=== PATIENT | female | born 1990 | race African-American/Black ===

== ENCOUNTER 2024-11-13 23:39 | Inpatient (IN) | payer SELFPAY ==
[~2024-11-13] VITALS: Ht 165.1 cm; Wt 59.9 kg
[2024-11-13 23:50] VITALS: O2SAT 99
[2024-11-14 00:44] LABS: BASOPHILS % 0.6 % (0.0-2.0); EOSINOPHILS % 0.4 % (0.0-5.0); HEMATOCRIT. 37.7 % (36.0-48.0); HEMOGLOBIN. 12.6 g/dL (12.0-16.0); LYMPHOCYTES % 28.0 % (20.0-50.0); MEAN PLATELET VOLUME 7.7 fl (7.4-10.4); MONOCYTES % 7.9 % (2.0-8.0); NEUTROPHILS % 63.1 % (40.0-76.0); PLATELET 234 x1000/uL (130-400); RED BLOOD CELL COUNT 4.05 mill/uL (4.2-5.4); RED CELL DISTRIBUTION WIDTH 18.3 % (11.6-14.6)
[2024-11-14] MEDS: LORAZEPAM 2MG/ML UD SYRINGE IV NR (01:01)
[2024-11-14] MEDS: SODIUM CHLORIDE 0.9% 1,000 ML IV ONE (01:02)
[2024-11-14] MEDS: ONDANSETRON HCL 4MG/2ML INJ IV ONE (01:02)
[2024-11-14 01:03] LABS: HCG SCREEN NEGATIVE
[2024-11-14 01:07] LABS: CREATININE 0.6 mg/dL (0.6-1.0); ETHANOL BLOOD 158 mg/dL (<10); UREA NITROGEN BLOOD 6 mg/dL (9-23)
[2024-11-14 01:09] LABS: ASPARTATE AMINOTRANSFERASE 283 IU/L (<34); BILIRUBIN DIRECT 0.4 mg/dL (<=3.0); BILIRUBIN TOTAL 0.8 mg/dL (0.1-1.0); PROTEIN TOTAL 8.0 g/dL (6.0-8.3)
[2024-11-14 04:00] VITALS: BP 115/70; PULSE 54; RESP 18; TEMP 36.4; O2SAT 97
[2024-11-14 05:43] VITALS: BP 125/83; PULSE 83; RESP 19; TEMP 36.5848
[2024-11-14] MEDS ORDERED: ONDANSETRON HCL 4MG/2ML INJ IV PRN ×2 (07:00→10:30)
[2024-11-14] MEDS ORDERED: NALOXONE HCL 0.4MG/ML VIAL IV PRN (07:30)
[2024-11-14] MEDS ORDERED: FOLIC ACID 1 MG, THIAMINE HCL 100 MG, MVI, ADULT NO.1 10 ML in DEXTROSE 5% WATER 1,000 ML IV ONE (07:30)
[2024-11-14 08:00] VITALS: BP 134/81; PULSE 86; RESP 18; TEMP 36.3; O2SAT 96
[2024-11-14] MEDS: DIAZEPAM 5 MG/ML 2ML SYR IV NR (08:18)
[2024-11-14] MEDS: PANTOPRAZOLE SODIUM 40 MG/VIAL IV SCH (08:18)
[2024-11-14] MEDS: FOLIC ACID 1 MG, THIAMINE HCL 100 MG, MVI, ADULT NO.1 10 ML in DEXTROSE 5% WATER 1,000 ML IV ONE (10:14)
[2024-11-14] MEDS: SODIUM CHLORIDE 0.9% 1,000 ML IV SCH (10:15)
[2024-11-14] MEDS ORDERED: ZOLPIDEM TARTRATE 5MG TABLET PO PRN (10:30)
[2024-11-14] MEDS ORDERED: MAGNESIUM/ALUMINUM HYDROXIDE/SIMETHICONE 30ML UDC PO PRN (10:30)
[2024-11-14] MEDS ORDERED: DIPHENHYDRAMINE 50MG/ML VIAL IV PRN (10:30)
[2024-11-14] MEDS ORDERED: ACETAMINOPHEN 325MG TABLET PO PRN (10:30)
[2024-11-14] MEDS ORDERED: MVI, ADULT NO.1 10 ML, FOLIC ACID 1 MG, THIAMINE HCL 100 MG in SODIUM CHLORIDE 0.9% 1,0... IV SCH (10:30)
[2024-11-14] MEDS ORDERED: SODIUM CHLORIDE 0.9% 1,000 ML IV SCH (10:30)
[2024-11-14 12:00] VITALS: BP 137/93; PULSE 80; RESP 18; TEMP 36.1; O2SAT 99
[2024-11-14] MEDS: MORPHINE SULFATE 2 MG/ML INJ (NOT FOR IM USE) IV PRN (12:05)
[2024-11-14 16:00] VITALS: BP 134/94; PULSE 78; RESP 18; TEMP 36.1; O2SAT 99
[2024-11-14] MEDS: MORPHINE SULFATE 4 MG/ML INJ (FOR IV/IM USE) IV PRN (18:42)
[2024-11-14 20:00] VITALS: BP 148/94; PULSE 87; RESP 20; TEMP 36.4; O2SAT 100
[2024-11-15] MEDS: KETOROLAC 30MG/ML VIAL IV PRN (01:05)
[2024-11-15 08:00] VITALS: BP 128/87; PULSE 80; RESP 18; TEMP 36.2; O2SAT 98
[2024-11-15 09:45] LABS: ASPARTATE AMINOTRANSFERASE 306 IU/L (<34); BILIRUBIN DIRECT 0.4 mg/dL (<=3.0); BILIRUBIN TOTAL 0.8 mg/dL (0.1-1.0); PROTEIN TOTAL 7.4 g/dL (6.0-8.3)
[2024-11-15 12:00] VITALS: BP 132/88; PULSE 79; RESP 18; TEMP 36.3; O2SAT 98
[2024-11-15 16:00] VITALS: BP 130/75; PULSE 92; RESP 18; TEMP 36.2; O2SAT 97
[2024-11-15 20:00] VITALS: BP 126/83; PULSE 67; RESP 16; TEMP 36.9; O2SAT 100
[2024-11-16] VITALS: BP 141/99; PULSE 76; RESP 18; TEMP 36.8; O2SAT 100
[2024-11-16 04:00] VITALS: BP 125/82; PULSE 76; RESP 17; TEMP 36.2; O2SAT 100
[2024-11-16] MEDS: MORPHINE SULFATE 2 MG/ML INJ (NOT FOR IM USE) IV PRN (05:41)
[2024-11-16 08:00] VITALS: BP 130/86; PULSE 70; RESP 17; TEMP 37.8; O2SAT 99
[2024-11-16 12:00] VITALS: BP 124/80; PULSE 72; RESP 17; TEMP 37.2; O2SAT 98
[2024-11-16 16:00] VITALS: BP 121/84; PULSE 67; RESP 18; TEMP 36.9; O2SAT 99
[2024-11-16 20:00] VITALS: BP 123/85; PULSE 73; RESP 18; TEMP 37.3; O2SAT 100
[2024-11-17] VITALS: BP 138/80; PULSE 73; RESP 18; TEMP 37.3; O2SAT 100
[2024-11-17] MEDS: ACETAMINOPHEN 325MG TABLET PO PRN (04:36)
[2024-11-17 05:00] VITALS: BP 127/75; PULSE 80; RESP 18; TEMP 37.1; O2SAT 99
[2024-11-17] MEDS ORDERED: HYDR-4001 PO (06:48)
[2024-11-17 08:00] VITALS: BP 128/78; PULSE 67; RESP 18; TEMP 36.6; O2SAT 98
[2024-11-17 10:10] VITALS: BP 125/78; PULSE 67; RESP 18; TEMP 97.9
[2024-11-17 12:00] VITALS: BP 108/75; PULSE 65; RESP 18; TEMP 36.7; O2SAT 100
[2024-11-17 16:00] VITALS: BP 128/86; PULSE 71; RESP 18; TEMP 37.5; O2SAT 97
== END 2024-11-17 18:40 | disposition home or self-care (01) | DRG 282 ==
LOC: ER 11-14 00:20 → EDBEDREQ 11-14 04:48 → EDBEDREQTM 11-14 04:48 → ENRESERV 11-14 05:29 → 6WST 11-14 05:36 → 8EST 11-15 18:10
PROVIDERS: ADMIT Internal Medicine; ATTEND Internal Medicine
DX: K85.90 Acute pancreatitis without necrosis or infection, unspecified (principal); K76.0 Fatty (change of) liver, not elsewhere classified; F10.139 Alcohol abuse with withdrawal, unspecified; Y90.6 Blood alcohol level of 120-199 mg/100 ml; Z87.19 Personal history of other diseases of the digestive system
CPT/HCPCS: 36415; 76700; 80048; 80076; 80320; 84703; 85025; 99285; J1885; J2060; J2270; J2405; J2470; J3411; J3490; J7030; J7070; G0480